=== PATIENT | female | born 1990 | race Caucasian/White ===

== ENCOUNTER 2019-03-21 17:08 | Outpatient (CLI) | payer OTHER ==
[~2019-03-21] VITALS: Ht 170.2 cm; Wt 88.1 kg
[2019-03-21 17:21] VITALS: BP 134/68
[2019-03-21] MEDS ORDERED: PRENTAB9 PO (17:24)
--- NOTE | 2019-03-21 18:45 | HPE ---
DATE OF ADMISSION: 03/21/2019 A 29-year-old 1, para 0, last menstrual period (LMP) 07/03/2018, estimated date of confinement (EDC) 04/02/2019, at 38 and 4, with history contractions, moderate intensity. No vaginal loss or bleeding. Group B Streptococcus (GBS) positive. RISK FACTORS: She is GBS positive. LABORATORIES: A positive, HIV negative, hepatitis negative, rapid plasma reagin (RPR) negative, rubella nonimmune. Varicella immune. Pap normal. Urine negative. Gonorrhea and chlamydia negative. 1-hour glucose 90. GBS is positive. Blood pressure is 134/68, respirations 18, pulse 71, temperature 98.3. Urine is 1005, pH 7 and negative. She is having significant discomfort with her contractions, giving her some episodic diarrhea. On examination, she appears distressed with the contractions. Symphysis fundus height is 38, vertex -3, thick posterior, 1-2 cm. No vaginal loss or bleeding and is soft. The rest the examination unremarkable. She is normocephalic, atraumatic. NECK: Full range of motion. Pupils equal and reactive to light. Distal pulses symmetric. No evidence of deep venous thrombosis (DVT), pulmonary embolism (PE), or superficial phlebitis. CHEST: Clear bilaterally to bases. No wheezes or rhonchi. No costovertebral angle (CVA) tenderness. ABDOMEN: Soft for quadrant bowel sounds are noted. Category one strip is also noted. She has no rashes, lesions or tattoos. She has no pruritus. 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 She has no arthralgia, myalgia. No complaint of joint pain. No complaint of cough, shortness of breath or dyspnea on exertion. No bruising. No bleeding. Neurologically complete. No incontinency or frequency. No nausea, vomiting, diarrhea or constipation. No abnormal Pap smears. PAST MEDICAL/SURGICAL HISTORY: Unremarkable. FAMILY HISTORY: Noncontributory. SOCIAL HISTORY: She does not smoke, drink abuse drugs. 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 IN SUMMARY: We have a 38+ weeks gestational patient who is either in prodromal labor very early on. We will reevaluate her in an hour and a half's time. If she has progressed and changed her cervix, which we will continue on with her; if not, she will be discharged with precautions.
--- NOTE | 2019-03-22 16:30 | IPN ---
DATE: 03/21/2019 This lady came in with contractions, low back pain and was having some nausea with the contractions. When initially evaluated, the cervix was closed, high posterior, 1-2 cm. We left her for 2-3 hours, reevaluated her. The contractions had spaced out, category one strip, basically no change in her cervix and she was discharged with precautions regarding premature rupture of membranes, bleeding, labor, kick chart. The patient has an appointment on Saturday for evaluation. All questions were answered.
== END 2019-03-21 20:10 | disposition home or self-care (01) ==
LOC: M LDO 17:08
PROVIDERS: ATTEND Obstetrics & Gynecology
DX: O26.893 Other specified pregnancy related conditions, third trimester (principal); M54.9 Dorsalgia, unspecified; R19.7 Diarrhea, unspecified; O99.820 Streptococcus B carrier state complicating pregnancy; Z3A.38 38 weeks gestation of pregnancy
CPT/HCPCS: 59025; G0378; G0463

== ENCOUNTER 2019-04-07 08:02 | Inpatient (IN) | payer OTHER ==
[2019-04-07] VITALS (15 sets, daily range): BP systolic 117–142; BP diastolic 56–74
[~2019-04-07] VITALS: Ht 170.2 cm; Wt 90.0 kg
[~2019-04-07 08:02] MED LIST: PRENTAB9 PO
[2019-04-07] MEDS ORDERED: **PENDING PCN ENTRY XX SCH (09:00)
[2019-04-07] MEDS ORDERED: PENICILLIN G POTASSIUM IV 5 MU in D5W MINI-BAG PLUS 100 ML IV STA (09:13)
[2019-04-07] MEDS ORDERED: LACTATED RINGER'S 1000 ML IV ONE (09:15)
[2019-04-07] MEDS ORDERED: miSOPROStol 50 MCG 1/2 TAB (S0191) PO ONE ×3 (09:15→23:00)
[2019-04-07] MEDS ORDERED: ROBA100S PO (09:28)
[2019-04-07] MEDS ORDERED: ALLE12TA31 PO (09:28)
--- NOTE | 2019-04-07 09:48 | HPE ---
DATE OF ADMISSION: 04/07/2019 This lady is a 29-year-old 1, para 0, last menstrual period (LMP) 07/03/2018, estimated date of confinement (EDC) 04/02/2019 at 41 weeks of gestation for induction of labor. Risk factors is she is group B streptococcus (GBS) positive, and she is a late transfer of care. Laboratories are A+, HIV negative, hepatitis negative, rapid plasma reagin (RPR) negative, rubella nonimmune, varicella immune. Pap normal. Urine negative. Gonorrhea and chlamydia are negative. 1-hour glucose was 90. GBS is positive. On examination, no acute distress. Symphysis fundus height is 40, vertex occipitoanterior (OA) 50%, fingertip, -3 station. Category one strip. Blood pressure 125/58, respirations 18, pulse 75, and temperature is 97.5. Urine is not available. The rest of the examination is unremarkable. She is normocephalic, atraumatic. Neck: Full range of motion. Pupils equal and reactive to light. Distal pulses symmetric. No evidence of deep venous thrombosis (DVT), pulmonary embolism (PE), or superficial phlebitis. Chest is clear bilaterally to bases. No wheezes or rhonchi. No costovertebral angle (CVA) tenderness. Abdomen soft. Four-quadrant bowel sounds. No scars. She has no rashes, lesions, or pruritus. She does have a port wine stain on her face over her right eye. She has no arthralgia, myalgia, or joint pain. No complaint of cough, wheeze, shortness of breath, or dyspnea on exertion. No frequency. No bleeding. Neuro complete. No incontinence, urgency, or frequency. No nausea, vomiting, diarrhea, or constipation. No diabetic issues. GYNECOLOGIC HISTORY: Is unremarkable. PAST MEDICAL AND SURGICAL: Unremarkable. FAMILY HISTORY: Noncontributory. She does not smoke, drink, abuse drugs. She is to a soldier. No domestic violence. No allergies. We discussed the consent for vaginal delivery and postterm induction of labor. Delivery is through the vagina with possible assistance of forceps or vacuum devices if needed for maternal or indications, forceps or vacuum device can assist with vaginal delivery when normal pushing efforts cannot achieve delivery on their own or when delivery is needed for emergency for baby's well-being. Medications may be required to induce or augment labor in order to achieve vaginal delivery. An episiotomy may be required to help the baby deliver vaginally. You may also require repair of any lacerations or tears of te vagina or vulva and are caused by delivery. In some cases, emergencies can arise that require emergency section so quickly that there may not be time for signing consent forms but will be discussed by the provider if this is this is safer for the mother and the baby than continuing labor, and it is only used for clinically-indicated conditions. The risks of vaginal delivery include, not limited to bleeding, infection, injury to vagina or pelvic structures, injury to baby, damage to the uterus, reaction to anesthesia, uterine rupture. Risk of hysterectomy for life-threatening bleeding or , medications used to induce or augment labor or delivery may increase risk of infection, uterine tachysystole, uterine rupture, heart rate abnormalities, and need for emergency section, or possibly hysterectomy and hemorrhage. Additional risks of forceps or vacuum includes scratches, hematomas of the head, or intracranial bleed. The patient expressed understanding. All questions were answered. 40-minute discussion. We are going to continue on with induction of labor with misoprostol as the patient is GBS positive. Prophylactic antibiotics at the appropriate time and epidural upon request.
[2019-04-07 10:18] LABS: HEMATOCRIT 37.2 % (36.0-47.0); HEMOGLOBIN 12.9 g/dl (12.0-15.5); MEAN CORPUSCULAR HEMOGLOBIN 32.2 pg (27.0-33.0); MEAN CORPUSCULAR HGB CONC 34.7 g/dl (32.0-36.5); MEAN CORPUSCULAR VOLUME 92.8 fl (80.0-96.0); PLATELET COUNT, AUTOMATED 106 10^3/uL (150-450); RED BLOOD COUNT 4.01 10^6/uL (4.00-5.40); WHITE BLOOD COUNT 7.9 10^3/uL (4.0-10.0)
[2019-04-07] MEDS ORDERED: PENICILLIN G POTASSIUM IV 2.5 MU in APPROPRIATE DILUENT 1 EA IV SCH (13:15)
--- NOTE | 2019-04-07 18:34 | NUR ---
1700 hours reassessment category 1 strip no decelerations minimal contractions reviewed pelvic exam no change. Repeat misoprostol Po noted low platelets bp and p normal safe to proceed
--- NOTE | 2019-04-07 22:51 | NUR ---
2200 reassessment no cervical change catagory 1 strip option rest overnight or continue miso Patient opted for miso safe to proceed
[2019-04-08] VITALS (47 sets, daily range): BP systolic 101–153; BP diastolic 53–86
[2019-04-08] MEDS ORDERED: PENICILLIN G POTASSIUM IV 5 MU in D5W MINI-BAG PLUS 100 ML IV STA (03:25)
--- NOTE | 2019-04-08 03:37 | NUR ---
0330 am reassessment contractions painful q3-5 minutes category 1 strip. vertex 90 % effaced station -1 station still posterior 1-2 cm Plan allow to labor ctx too close for Pitocin start antibiotics and after epidural arom Plan received by patient reevaluate 3 hours
[2019-04-08] MEDS: LR 1,000 ML IV SCH ×2 (03:42→16:33)
[2019-04-08] MEDS ORDERED: PROMETHAZINE INJ 25 MG/ML VIAL (J2550) IV ONE (04:00)
[2019-04-08] MEDS ORDERED: BUTORPHANOL 2 MG/ML INJ (J0595) IV ONE (04:00)
[2019-04-08] MEDS ORDERED: OXYTOCIN DRIP 30 UNITS in APPROPRIATE DILUENT 1 EA IV SCH ×2 (06:15→18:44)
--- NOTE | 2019-04-08 06:16 | NUR ---
0615 am reassessment post sedation contractions spaced out category 1 strip augment with Pitocin gbs prophylaxis started
[2019-04-08] MEDS ORDERED: OXYTOCIN 30 UNITS IN 0.9% NaCl 500ML IV BAG (J2590) As Ordered ONE (06:22)
[2019-04-08] MEDS: PENICILLIN G POTASSIUM IV 2.5 MU in APPROPRIATE DILUENT 1 EA IV SCH ×3 (08:09→16:33)
--- NOTE | 2019-04-08 08:29 | IPNPDOC ---
Text Note Date of Service The patient was seen on 04/08/19. NOTE Intrapartum Note Lynn is a 29yo with SIUP at 41w1d who is undergoing IOL for LTG, started yesterday around 10am with cytotec- she received 3 doses of cytotec and was sta rted on pitocin this morning (currently at 6mu). She is now feeling strong ctx, has a little bloody show at last use of restroom. Vitals wnl, afebrile Cat I FHRT with bl 120, +accels, -decels, mod yuliet [place]: ctx q3-5min SCE: 6/80/-2, AROM performed with clear blood tinged fluid, well tolerated Will turn off pitocin, I anticipate she will continue with active labor Pt strongly desires epidural now, will repeat CBC (plt on admission 106). Anesthesia contacted. Will continue to closely observe, plan to recheck 2-4hr or earlier as indicated Safe to proceed Dr. Lucia Haro MD VS,Gabi, I+O VS, Gabi, I+O Laboratory Tests 04/07/19 10:04 Red Blood Count 4.01, Mean Corpuscular Volume 92.8, Mean Corpuscular Hemoglobin 32.2, Mean Corpuscular Hemoglobin Concent 34.7, Red Cell Distribution Width 12.6 Vital Signs Date Time Temp Pulse Resp B/P (MAP) Pulse Ox O2 Delivery O2 Flow Rate FiO2 04/08/19 07:07 61 18 125/68 (87) 04/08/19 06:31 99.9 I&O- Last 24 Hours up to 6 AM 04/08/19 06:00 Intake Total 2700 ml Balance 2700 ml Lucia Haro MD Apr 08, 2019 08:29
[2019-04-08 09:06] LABS: HEMATOCRIT 38.2 % (36.0-47.0); HEMOGLOBIN 13.3 g/dl (12.0-15.5); MEAN CORPUSCULAR HEMOGLOBIN 32.1 pg (27.0-33.0); MEAN CORPUSCULAR HGB CONC 34.8 g/dl (32.0-36.5); MEAN CORPUSCULAR VOLUME 92.3 fl (80.0-96.0); PLATELET COUNT, AUTOMATED 108 10^3/uL (150-450); RED BLOOD COUNT 4.14 10^6/uL (4.00-5.40); WHITE BLOOD COUNT 10.5 10^3/uL (4.0-10.0)
[2019-04-08] MEDS ORDERED: FENTANYL 2MCG/ML ROPIVACAINE 0.2% IN 0.9% NACL 100ML IVBAG As Ordered ONE (09:15)
[2019-04-08] MEDS ORDERED: EPIDURAL COMMENT XX SCH (10:15)
[2019-04-08] MEDS ORDERED: FENTANYL/ROPIVACAINE/NACL BAG 100 ML EPIDURAL SCH (10:15)
[2019-04-08] MEDS ORDERED: EPIDURAL/PCA KEYS XX PRN (10:15)
[2019-04-08] MEDS ORDERED: NALOXONE INJ 0.4 MG/1 ML VIAL (J2310) IV PRN (10:15)
[2019-04-08] MEDS ORDERED: ONDANSETRON 4MG/2ML VIAL (J2405) IV PRN (10:15)
[2019-04-08] MEDS ORDERED: REFRIGERATOR IV KEYS XX PRN (10:15)
[2019-04-08] MEDS ORDERED: diphenhydrAMINE INJ 50MG/ML VIAL (J1200) IV PRN (10:15)
--- NOTE | 2019-04-08 11:31 | IPNPDOC ---
Text Note Date of Service The patient was seen on 04/08/19. NOTE Intrapartum Note Lynn is a 29yo with SIUP at 41w1d who is undergoing IOL for LTG, started yesterday around 10am with cytotec- she received 3 doses of cytotec and was sta rted on pitocin this morning, but it was stopped after AROM since she was in active labor and wanted epidural. She received an epidural and is currently comfortable, has been sleeping. Vitals wnl, afebrile Cat I FHRT [place]: ctx q3-4min SCE: 7-//-1, still slight blood tinged fluid Will re-start pitocin and titrate per protocol Continue to closely monitor Plan to recheck in 2-4hr or earlier as indicated Safe to proceed Dr. Lucia Haro MD VS,Gabi, I+O VS, Gabi I+O Laboratory Tests 04/08/19 08:42 Red Blood Count 4.14, Mean Corpuscular Volume 92.3, Mean Corpuscular Hemoglobin 32.1, Mean Corpuscular Hemoglobin Concent 34.8, Red Cell Distribution Width 12.5 Vital Signs Date Time Temp Pulse Resp B/P (MAP) Pulse Ox O2 Delivery O2 Flow Rate FiO2 04/08/19 07:07 61 18 125/68 (87) 04/08/19 06:31 99.9 I&O- Last 24 Hours up to 6 AM 04/08/19 06:00 Intake Total 2700 ml Balance 2700 ml Lucia Haro MD Apr 08, 2019 11:31
[2019-04-08] MEDS: ePHEDrine SULFATE 25 MG/5 ML(5MG/ML) SYRINGE IV PRN ×3 (11:56→12:05)
[2019-04-08] MEDS ORDERED: METOCLOPRAMIDE INJ 10MG/2ML VIAL (J2765) IV PRN (18:45)
[2019-04-08] MEDS ORDERED: RHOGAM 300 MCG (1500 IU) INJ (J2790) IM SCH (18:45)
[2019-04-08] MEDS ORDERED: MEASLES,MUMPS,RUBELLA VACCINE INJ (MMR-II) (90707) SC SCH (18:45)
[2019-04-08] MEDS ORDERED: DIBUCAINE 1% OINTMENT 30GM TOP PRN (18:45)
--- NOTE | 2019-04-08 19:34 | DNPDOC ---
[facility] Delivery Note Delivery Note DATE OF DELIVERY: 08 April 2019 PREDELIVERY DIAGNOSIS: 41w1d, IOL for LTG POST DELIVERY DIAGNOSIS: Delivered. PROCEDURE: Spontaneous vaginal delivery [employer] MONITORING TECHNICIAN: Dr. Lucia Haro MD ANESTHESIA: epidural ESTIMATED BLOOD LOSS: 400 mL. FINDINGS: 9 pound 1 ounce (4110g) male infant, Score 8/9 DELIVERY SUMMARY: Lynn is a 29yo [id number] s/p uncomplicated at 41w1d after undergoing IOL for LTG, delivering at 1758 on 04/08/19. She received 3 doses of cytotec and then pitocin, progressed on the labor curve to C/C/0 and did passive descent x1 hour. She then began pushing and pushed for about 2 hours. head delivered OA, restituted WILD. Left anterior shoulder delivered followed by posterior shoulder and corpus. Infant was vigorous with spontaneous cry, placed on maternal abdomen, apgars 8/9. Cord was clamped x2 and cut by FOB. Uterine massage was performed with traction on the cord, and placenta delivered spontaneously and i ntact with 3 vessel centrally inserted cord, placenta observed to be intact. Bimanual massage performed and pitocin given per protocol, fundus firm at u-2cm. Inspection of perineum and vagina revealed a deep left sulcal laceration that lead into a left labial laceration. Dr. Barron came in to assist with retraction to gain better visualization and the laceration was repaired with 3-O vicryl in 2 layers to completely reapproximate the total depth of the laceration. The left labial laceration was repaired in routine fashion with 3-O vicryl as well. There was complete hemostasis noted. The vagina was packed with vaginal packing that was coated in vaseline and jang catheter was replaced. Packing will be removed tomorrow morning. All counts correct x2. Mom and infant were doing well when I left the room. MD Estrellita Clark Katrina D MD Apr 08, 2019 19:21
[2019-04-08] MEDS: IBUPROFEN 800 MG TAB PO PRN (19:48)
[2019-04-08] MEDS: ACETAMINOPHEN TAB 650MG DOSE (2X325MG) PO PRN (21:27)
[2019-04-08] MEDS: DOCUSATE SODIUM 100 MG CAP PO SCH (21:27)
[2019-04-09 02:41] VITALS: BP 110/59
[2019-04-09 05:13] LABS: HEMATOCRIT 30.9 % (36.0-47.0); MEAN CORPUSCULAR HEMOGLOBIN 32.5 pg (27.0-33.0); MEAN CORPUSCULAR HGB CONC 34.6 g/dl (32.0-36.5); MEAN CORPUSCULAR VOLUME 93.9 fl (80.0-96.0); PLATELET COUNT, AUTOMATED 108 10^3/uL (150-450); RED BLOOD COUNT 3.29 10^6/uL (4.00-5.40); WHITE BLOOD COUNT 13.7 10^3/uL (4.0-10.0)
[2019-04-09] MEDS: IBUPROFEN 800 MG TAB PO PRN ×2 (05:16→14:16)
[2019-04-09 05:30] LABS: HEMOGLOBIN 10.7 g/dl (12.0-15.5)
[2019-04-09] MEDS: ACETAMINOPHEN TAB 650MG DOSE (2X325MG) PO PRN ×3 (05:38→20:09)
[2019-04-09 06:48] VITALS: BP 121/57
--- NOTE | 2019-04-09 07:00 | IPNPDOC ---
Text Note Date of Service The patient was seen on 04/09/19. NOTE PPD1 s/p deep sulcal tear and difficult repair States feeling well, pain controlled with prescribed meds. Baby bonding and feeding well. No heavy VB. Lochia slowing. Ambulatory. Tolerating PO without issues. U/O adeq through jang. No CP/LP/SOB. VSSAF NAD A&O LE no C/C/E Ut at U-2, firm Very swollen perineum/labia/vag. Packing removed and gently probed repair site, no obvious hematoma present This AM: Hct 30.9, PLT 108 a/p: Doing well. Cont routine care. Will keep jang in until at least this evening. SBAR to Dr Garland. Sessions VS,Gabi, I+O Gabi BECK, I+O Laboratory Tests 04/08/19 08:42 Red Blood Count 4.14, Mean Corpuscular Volume 92.3, Mean Corpuscular Hemoglobin 32.1, Mean Corpuscular Hemoglobin Concent 34.8, Red Cell Distribution Width 12.5 04/09/19 05:01 Red Blood Count 3.29 L, Mean Corpuscular Volume 93.9, Mean Corpuscular Hemoglobin 32.5, Mean Corpuscular Hemoglobin Concent 34.6, Red Cell Distribution Width 12.7 Vital Signs Date Time Temp Pulse Resp B/P (MAP) Pulse Ox O2 Delivery O2 Flow Rate FiO2 04/09/19 06:48 97.2 68 18 121/57 (78) I&O- Last 24 Hours up to 6 AM 04/09/19 06:00 Intake Total 5727 ml Output Total 2475 ml Balance 3252 ml SESSIONSHAYLEY MD Apr 09, 2019 07:00
[2019-04-09] MEDS: PRENATAL VITAMINS CHEWABLE TABLET PO SCH (08:47)
[2019-04-09] MEDS: DOCUSATE SODIUM 100 MG CAP PO SCH ×2 (08:47→20:08)
[2019-04-09 18:09] VITALS: BP 120/69
[2019-04-10] MEDS: IBUPROFEN 800 MG TAB PO PRN (02:10)
[2019-04-10 05:23] VITALS: BP 128/75
[2019-04-10] MEDS ORDERED: DIBU10OI TOP (07:28)
[2019-04-10] MEDS ORDERED: ACET1TAB55 PO (07:28)
[2019-04-10] MEDS ORDERED: IBUP80TA PO (07:28)
--- NOTE | 2019-04-10 07:34 | DS.PDOC ---
Discharge Summary General Date of Admission Apr 07, 2019 at 08:02 Date of Discharge April 10, 2019 Discharge Summary HOSPITAL COURSE: Ms. Shah is a 29 yo G1 now P1 who underwent an uncomplicated on 08Apr2019 at ~1800 after being admitted for an IOL for late term . She required a jang catheter after delivery due to significant perineal swelling, but this has since been removed and she is voiding on her own without issues. Her course has otherwise been unremarkable. On her day of discharge she met all appropriate discharge criteria. She was ambulating, voiding, tolerating a regular diet, and had minimal pain and lochia. Infant remains in the NICU due to breathing issues but Ms. Shah desires to be discharged home today. DISCHARGE MEDICATIONS: Please see below. ALLERGIES: Please see below. PHYSICAL EXAMINATION ON DISCHARGE: VITAL SIGNS: Please see below. GENERAL: AAOX3, laying in bed, NAD ABDOMINAL EXAMINATION: Fundus firm at U-2. No fundal tenderness EXTREMITIES: No edema PSYCHIATRIC EXAMINATION: Affect appropriate LABORATORY DATA: Please see below. ACTIVITY: Pelvic rest for 6 weeks DIET: Regular DISCHARGE PLAN: Discharge to home DISPOSITION: Discharge to home on 10Apr2019. DISCHARGE INSTRUCTIONS: 1. Pelvic rest for 6 weeks ITEMS TO FOLLOWUP ON ON OUTPATIENT: 1. appointment in 6 weeks. DISCHARGE CONDITION: Stable. TIME SPENT ON DISCHARGE: Greater than 20 minutes. Robert Garland DO Vital Signs/I&Os Vital Signs Date Time Temp Pulse Resp B/P (MAP) Pulse Ox O2 Delivery O2 Flow Rate FiO2 04/10/19 05:23 98.1 69 17 128/75 (92) I&O- Last 24 Hours up to 6 AM 04/10/19 06:00 Output Total 5150 ml Balance -5150 ml Discharge Medications Scheduled Fexofenadine/Pseudoephedrine (Peyton-D 12 Hour Tablet) 1 Each Tab.er.12h, 1 TAB PO BID, (Reported) Guaifenesin/Dextromethorphan (Robafen-Dm Syrup) 118 Ml Syrup, 10 ML PO Q4H for nausea/vomiting, (Reported) No.137/Iron/Folic Acd ( Vitamin Tablet) 1 Each Tablet, 1 TAB PO DAILY, (Reported) Scheduled PRN Acetaminophen (Acetaminophen) 325 Mg Tablet, 650 MG PO Q4HP PRN for PAIN SCALE 1-5 Dibucaine (Dibucaine) 28 Gm Oint...g., 0 DOSE TOP Q4HP PRN for PAIN Ibuprofen (Ibuprofen) 800 Mg Tablet, 800 MG PO Q8HP PRN for PAIN SCALE 6-10 Allergies Coded Allergies: No Known Allergies (Verified Allergy, Unknown, 04/07/19) ROBERT GARLAND DO Apr 10, 2019 07:34
[2019-04-10] MEDS: PRENATAL VITAMINS CHEWABLE TABLET PO SCH (08:07)
[2019-04-10] MEDS: DOCUSATE SODIUM 100 MG CAP PO SCH (08:08)
== END 2019-04-10 12:55 | disposition home or self-care (01) | DRG 807 ==
LOC: M LDI 08:02 → M OBS 04-08 20:43
PROVIDERS: ADMIT Obstetrics & Gynecology; ATTEND Obstetrics & Gynecology
PROC: 10E0XZZ Delivery of Products of Conception, External Approach (ICD-10-PCS; principal; 2019-04-08)
PROC: 0KQM0ZZ Repair Perineum Muscle, Open Approach (ICD-10-PCS; 2019-04-08)
PROC: 3E033VJ Introduction of Other Hormone into Peripheral Vein, Percutaneous Approach (ICD-10-PCS; 2019-04-08)
PROC: 10907ZC Drainage of Amniotic Fluid, Therapeutic from Products of Conception, Via Natural or Artificial Opening (ICD-10-PCS; 2019-04-08)
DX: O99.824 Streptococcus B carrier state complicating childbirth (principal); Z37.0 Single live birth; O48.0 Post-term pregnancy; Z3A.41 41 weeks gestation of pregnancy; O70.1 Second degree perineal laceration during delivery

== ENCOUNTER → 2019-11-03 | Outpatient (REF) | payer OTHER ==
[~2019-11-03] MED LIST changes: +ACET1TAB55 PO; +ALLE12TA31 PO; +DIBU10OI TOP; +IBUP80TA PO; +ROBA100S PO
== END ==
LOC: M SFHCLERA 11:10
PROVIDERS: ATTEND Physician Assistant
DX: R50.9 Fever, unspecified (principal)